=== PATIENT | female | born 1975 | race Caucasian/White ===

== ENCOUNTER 2020-10-07 12:56 | Emergency (ER) | payer OTHER ==
[~2020-10-07] VITALS: Ht 167.6 cm; Wt 65.8 kg
[2020-10-07 13:01] VITALS: BP_SYST 127
[2020-10-07] MEDS ORDERED: LORazepam 2 MG/ML VIAL IM ONE (13:30)
[2020-10-07] MEDS ORDERED: LORazepam 2 MG/ML VIAL ONE (13:36)
--- NOTE | 2020-10-07 13:43 | NUR ---
Patient to ER bed 07 to gown for evaluation. Side rails up.
--- NOTE | 2020-10-07 13:50 | NUR ---
PT BIB AMBULANCE FOR COMPLAINT OF SEVERE ANXIETY HR 84 BP 127/84 RR [place] 36 PT SHAKING AND STATING "IM FINE" REPEATEDLY. REPORT WAS SHE WAS AT A [employer] AND STARTED HAVING ANXIETY AND THE PERSON SHE WAS WITH LEFT. AMBULANCE WAS CALLED. PT IS PRESENTING WITH SEVERE ANXIETY AND DISTRESS, UNABLE TO FOLLOW COMMANDS OR ANSWER QUESTIONS. 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
[2020-10-07 13:52] LABS: BASOPHILS % (AUTO) 0.7 % (0.0-2.0); EOSINOPHILS # (AUTO) 0.1 K/uL (0.0-0.4); EOSINOPHILS % (AUTO) 1.7 % (0.0-4.0); HEMOGLOBIN 13.5 g/dL (12.0-16.0); LYMPHOCYTES # (AUTO) 2.2 K/uL (1.0-5.5); LYMPHOCYTES % (AUTO) 33.1 % (20.5-51.5); MEAN CORPUSCULAR HEMOGLOBIN 34 pg (27-31); MEAN CORPUSCULAR HGB CONC 35 % (32-36); MEAN CORPUSCULAR VOLUME 99 fL (79.0-98.0); MONOCYTES # (AUTO) 0.5 K/uL (0.0-1.0); MONOCYTES % (AUTO) 7.2 % (1.7-9.3); NEUTROPHILS # (AUTO) 3.8 K/uL (1.8-7.7); NEUTROPHILS % (AUTO) 57.3 % (40.0-70.0); PLATELET COUNT (AUTO) 390 K/uL (130-430); RED BLOOD CELL COUNT(AUTO) 3.94 MIL/uL (4.2-6.2); RED CELL DISTRIBUTION WIDTH 12.9 % (9.0-15.0); WHITE BLOOD COUNT (AUTO) 6.6 K/uL (4.8-10.8)
--- NOTE | 2020-10-07 13:55 | NUR ---
OZ Alvarado at bedside examining patient.
[2020-10-07 13:57] LABS: ANION GAP 11 (5-15); CALCIUM 9.2 mg/dL (8.4-11.0); CHLORIDE 99 mmol/L (98-107); CREATININE 0.85 mg/dL (0.55-1.30); GLUCOSE 112 mg/dL (70-99); POTASSIUM 4.5 mmol/L (3.5-5.1); SODIUM SERUM 132 mmol/L (136-145); UREA NITROGEN, BLOOD 12 mg/dL (8-21)
[2020-10-07 14:00] LABS: GFR AFRICAN AMERICAN 94 mL/min (>90)
[2020-10-07 14:03] LABS: ALANINE AMINOTRANSFERASE 13 U/L (12-78); ALBUMIN 3.9 g/dL (3.4-4.8); ASPARTATE AMINOTRANSFERASE 11 U/L (10-37); TOTAL BILIRUBIN 0.5 mg/dL (0.0-1.0)
[2020-10-07 14:04] LABS: ACETAMINOPHEN < 1 ug/mL (1-30); ALCOHOL, BLOOD < 3 mg/dL (<10)
[2020-10-07 14:05] LABS: CHOLESTEROL 204 mg/dL (<200); HDL CHOLESTEROL 61 mg/dL (>55); LDL CHOLESTEROL 129 mg/dL (<100); TRIGLYCERIDES 56 mg/dL (30-150)
--- NOTE | 2020-10-07 15:00 | NUR ---
Pt resting comfortably at this time, no distress noted
--- NOTE | 2020-10-07 15:58 | NUR ---
SPOKE WITH BROTHER OF PT AND UPDATED ON CONDITION. GAVE ME CONTACT FOR PT (MOM) MARIE MUHAMMAD [phone]. FAMILY WAS ABLE TO UPDATE ME ON INFORMATION OF PT
[2020-10-07 18:12] VITALS: BP_SYST 116
--- NOTE | 2020-10-07 18:12 | NUR ---
Patient given written and verbal discharge instructions and verbalizes understanding. DR. RISA CLINTON MD discussed with patient the results and treatment provided. Patient in stable condition. ID arm band removed. Patient educated on pain management and to follow up with PMD. Pain Scale 0/10. Opportunity for questions provided and answered.
[2020-10-07 18:14] LABS: BILIRUBIN,URINE 1+ (NEGATIVE); BLOOD, URINE NEGATIVE (NEGATIVE); CLARITY/URINE CLEAR (CLEAR); GLUCOSE,URINE NEGATIVE (NEGATIVE); KETONES,URINE TRACE (NEGATIVE); LEUKOCYTE ESTERASE ,URINE NEGATIVE (NEGATIVE); NITRITE, URINE NEGATIVE (NEGATIVE); PROTEIN URINE TRACE (NEGATIVE)
[2020-10-07 18:17] LABS: COLOR,URINE AMBER (YELLOW)
[2020-10-07 18:36] LABS: BARBITURATE, URINE NEGATIVE (NEG <=200); BENZODIAZEPINE, URINE NEGATIVE (NEG <=150); CANNABINOID, URINE NEGATIVE (NEG <=50); COCAINE, URINE NEGATIVE (NEG <=150); METHAMPHETAMINES SCREEN,URINE NEGATIVE (NEG <=500); OPIATE, URINE NEGATIVE (NEG <=100); PHENCYCLIDINE SCREEN,URINE NEGATIVE (NEG <=25); UR TRICYCLIC ANTIDEPRESSANTS NEGATIVE (NEG <=300); URINE AMPHETAMINE NEGATIVE (NEG <=500); URINE METHADONE NEGATIVE (NEG <=200); URINE OXYCODONE SCREEN NEGATIVE (NEG <=100); URINE PROPOXYPHENE SCREEN NEGATIVE (NEG <=300)
== END 2020-10-07 18:12 | disposition home or self-care (01) ==
LOC: EDBD 12:56 → SED 12:56
DX: F41.9 Anxiety disorder, unspecified (principal); Z79.899 Other long term (current) drug therapy
CPT/HCPCS: 36415; 80053; 80061; 80307; 81003; 85025; 96372; 99285; G0480; J2060; G0481; G0482